=== PATIENT | male | born 1980 | race Caucasian/White ===

== ENCOUNTER 2017-02-08 21:41 | Inpatient (IN) | payer OTHER ==
[2017-02-08 21:52] VITALS: BMI 24.5
--- NOTE | 2017-02-08 22:07 | HP ---
COWS - Scale Resting Pulse: 1= SC 81-100 Sweatin= Chills/Flushing Restless Observation: 3= Extraneous Movement Pupil Size: 1= Pupils >than Normal Bone or Joint Aches: 1= Mild Discomfort Runny Nose/ Eye Tearin= Nasal Congestion GI Upset > 30mins: 1= Stomach Cramp Tremor Observation: 2= Slight Tremor Visible Yawning Observation: 0= None Anxiety or Irritability: 2=Irritable/Anxious Goose Flesh Skin: 3=Piloerection COWS Score: 16 CIWA Score - CIWA Score Nausea/Vomitin-Mild Nausea/No Vomiting Muscle Tremors: 4-Moderate,w/Arms Extend Anxiety: 4-Mod. Anxious/Guarded Agitation: 4-Moderately Restless Paroxysmal Sweats: 1-Minimal Palms Moist Orientation: 0-Oriented Tacttile Disturbances: 0-None Auditory Disturbances: 0-None Visual Disturbances: 0-None Headache: 3-Moderate CIWA-Ar Total Score: 17 Admission ROS BHS - HPI Chief Complaint: withdrawal sx Allergies/Adverse Reactions: Allergies Allergy/AdvReac Type Severity Reaction Status Date / Time fish derived AdvReac Verified 02/08/17 22:07 History of Present Illness: 36 years old male with long history of klonopin and opiate and nicotine dependence, borderline diabetes, depression is admitted to detox Exam Limitations: No Limitations - Ebola screening Have you traveled outside of the country in the last 21 days: No Have you had contact with anyone from an Ebola affected area: No Have you been sick,other than usual withdrawal symptoms: No Do you have a fever: No - Review of Systems Constitutional: Chills, Loss of Appetite, Changes in sleep, Unexplained wgt Loss EENT: reports: No Symptoms Reported Respiratory: reports: No Symptoms reported Cardiac: reports: No Symptoms Reported GI: reports: Nausea, Poor Appetite, Poor Fluid Intake, Abdominal cramping : reports: No Symptoms Reported Musculoskeletal: reports: No Symptoms Reported Integumentary: reports: No Symptoms Reported Neuro: reports: Tremors Endocrine: reports: No Symptoms Reported Hematology: reports: No Symptoms Reported Psychiatric: reports: Judgement Intact, Depressed Other Systems: Reviewed and Negative Patient History - Patient Medical History Hx Anemia: No Hx Asthma: No Hx Chronic Obstructive Pulmonary Disease (COPD): No Hx Cancer: No Hx Cardiac Disorders: No Hx Congestive Heart Failure: No Hx Hypertension: No Hx Hypercholesterolemia: No Hx Pacemaker: No HX Cerebrovascular Accident: No Hx Seizures: No Hx Dementia: No Hx Diabetes: No Hx Gastrointestinal Disorders: No Hx Liver Disease: No Hx Genitourinary Disorders: No Hx Sexually Transmitted Disorders: No Hx Renal Disease (ESRD): No Hx Thyroid Disease: No Hx Human Immunodeficiency Virus (HIV): No Hx Hepatitis C: No Hx Depression: Yes Hx Suicide Attempt: No Hx Bipolar Disorder: No Hx Schizophrenia: No - Patient Surgical History Past Surgical History: Yes Hx Neurologic Surgery: No Hx Cataract Extraction: No Hx Cardiac Surgery: No Hx Lung Surgery: No Hx Breast Surgery: No Hx Breast Biopsy: No Hx Abdominal Surgery: No Hx Appendectomy: No Hx Cholecystectomy: No Hx Genitourinary Surgery: Yes (2014) Hx Orthopedic Surgery: Yes (fx right arm 2012) Anesthesia Reaction: No - PPD History Previous Implant?: Yes Documented Results: Negative w/o proof Implanted On Prior [facility] Admission?: No PPD to be Administered?: Yes - Smoking Cessation Smoking history: Current every day smoker Have you smoked in the past 12 months: Yes Aproximately how many cigarettes per day: 10 Cigars Per Day: 0 Hx Chewing Tobacco Use: No Initiated information on smoking cessation: Yes 'Breaking Loose' booklet given: 02/08/17 - Substance & Tx. History Hx Alcohol Use: No Hx Substance Use: Yes Substance Use Type: Marijuana, Opiates, Tranquilizers Hx Substance Use Treatment: Yes - Substances Abused Benzodiazepine (Klonopin) Route: Oral Frequency: Daily (1) Amount used: 2 mg Age of first use: 23 Date of Last Use: 02/08/17 Oxycontin Route: Oral Frequency: Daily Amount used: 60 mg Age of first use: 16 Date of Last Use: 02/08/17 Family Disease History - Family Disease History Family Disease History: Diabetes: Father, Sister, [place]: Father, Other: Mother, Brother, Sister Admission Physical Exam BHS - Vital Signs Vital Signs: Vital Signs - 24 hr 02/08/17 21:43 Temperature 96.8 F L Pulse Rate 81 Respiratory 18 Rate Blood Pressure 158/107 - Physical General Appearance: Yes: Appropriately Dressed, Moderate Distress, Thin, Tremorous, Irritable, Sweating, Anxious HEENTM: Yes: Hearing grossly Normal, Normal ENT Inspection, Normocephalic, Normal Voice Respiratory: Yes: Chest Non-Tender, Lungs Clear, Normal Breath Sounds, No Respiratory Distress, No Accessory Muscle Use Neck: Yes: Supple, Trachea in good position Breast: Yes: Breasts Symetrical Cardiology: Yes: Regular Rhythm, Regular Rate, S1, S2, Murmur (x 2 years) Abdominal: Yes: Non Tender, Soft, Other (pain x months "pain occured when take addell") Genitourinary: Yes: Within Normal Limits Back: Yes: Normal Inspection Musculoskeletal: Yes: full range of Motion, Gait Steady Extremities: Yes: Normal Inspection, Normal Range of Motion, Non-Tender, Tremors Neurological: Yes: Alert, Motor Strength 5/5, Normal Response, Depressed Affect Integumentary: Yes: Warm Lymphatic: Yes: Within Normal Limits - Diagnostic (1) Opioid dependence with withdrawal Current Visit: Yes Status: Acute (2) Sedative, hypnotic or anxiolytic dependence with withdrawal, uncomplicated Current Visit: Yes Status: Acute (3) Nicotine dependence Current Visit: Yes Status: Acute Qualifiers: Nicotine product type: cigarettes Substance use status: in withdrawal Qualified Code(s): F17.213 - Nicotine dependence, cigarettes, with withdrawal (4) Borderline diabetes mellitus Current Visit: Yes Status: Acute Comment: dietary control (5) Cardiac murmur Current Visit: Yes Status: Chronic Comment: no treatment (6) Weight loss Current Visit: Yes Status: Acute (7) Depression (emotion) Current Visit: Yes Status: Suspected Qualifiers: Depression Type: dysthymia Qualified Code(s): F34.1 - Dysthymic disorder Cleared for Admission [facility] - Detox or Rehab [facility] Level of Care: Medically Managed Detox Regimen/Protocol: Methadone/Valium [facility] Breath Alcohol Content Breath Alcohol Content: 0 Urine Drug Screen - Results Drug Screen Negative: No Urine Drug Screen Results: THC-Marijuana, OPI-Opiates, AMP-Amphetamines, BZO- Benzodiazepines, OXY-Oxycodone
[2017-02-08] MEDS ORDERED: MAGNESIUM CITRATE 300 ML BOTTLE PO PRN (22:20)
[2017-02-08] MEDS ORDERED: NICOTINE POLACRILEX 2 MG GUM BC PRN (22:20)
[2017-02-08] MEDS ORDERED: METHADONE HCL 10 MG TABLET (FOR DETOX USE ONLY) PO ONE ×2 (22:20→23:00)
[2017-02-08] MEDS ORDERED: LOPERAMIDE HCL 2 MG CAPSULE PO PRN (22:20)
[2017-02-08] MEDS ORDERED: MAGNESIUM HYDROX 2400MG/30ML ORAL SUSPENSION 30 ML CUP PO PRN (22:20)
[2017-02-08] MEDS ORDERED: diazePAM 5 MG TABLET PO PRN (22:20)
[2017-02-08] MEDS ORDERED: P-EPHED 60MG/TRIPROLIDI 2.5MG TABLET PO PRN (22:20)
[2017-02-08] MEDS ORDERED: IBUPROFEN 400 MG TABLET (FP) PO PRN (22:20)
[2017-02-08] MEDS ORDERED: MENTHOL/PHENOL 1 EACH UD MM PRN (22:20)
[2017-02-08] MEDS ORDERED: guaiFENesin/D-METHORPHAN HB 10 ML UNIT-DOSE CUPS PO PRN (22:20)
[2017-02-08] MEDS ORDERED: MAG HYDROX/AL HYDROX/SIMETH 30 ML UNIT-DOSE CUP PO PRN (22:20)
[2017-02-08] MEDS ORDERED: diphenhydrAMINE HCL 50 MG CAPSULE PO PRN (22:20)
[2017-02-08] MEDS ORDERED: ACETAMINOPHEN 325 MG TABLET (FP) PO PRN (22:20)
[2017-02-08] MEDS ORDERED: diazePAM 5 MG TABLET PO ONE (22:20)
[2017-02-08 23:01] LABS: URINE APPEARANCE CLEAR; URINE BILIRUBIN NEGATIVE (NEGATIVE); URINE BLOOD NEGATIVE (NEGATIVE); URINE COLOR YELLOW; URINE GLUCOSE (UA) NEGATIVE (NEGATIVE); URINE KETONE TRACE (NEGATIVE); URINE NITRITE NEGATIVE (NEGATIVE); URINE PROTEIN NEGATIVE (NEGATIVE); URINE UROBILINOGEN NEGATIVE E.U./dl (0.2-1.0)
[2017-02-08 23:10] LABS: URINE LEUK ESTERASE TRACE (NEGATIVE)
[2017-02-08 23:20] LABS: URINE MUCUS RARE; URINE RBC 1 /hpf (0-3); URINE WBC 1 /hpf (3-5)
[2017-02-08] MEDS: diazePAM 5 MG TABLET PO SCH (23:46)
[2017-02-09] MEDS: diazePAM 5 MG TABLET PO SCH ×3 (05:32→22:10)
--- NOTE | 2017-02-09 09:06 | PN ---
[facility] CIWA - CIWA Score Nausea/Vomitin Muscle Tremors: 3 Anxiety: 2 Agitation: 2 Paroxysmal Sweats: 1-Minimal Palms Moist Orientation: 0-Oriented Tacttile Disturbances: 1-Very Mild Itch/Numbness Auditory Disturbances: 1-Very Mild Visual Disturbances: 1-Very Mild Sensitivity Headache: 2-Mild CIWA-Ar Total Score: 16 BHS COWS - Scale Resting Pulse: 0= RI 80 or Below Sweatin= Chills/Flushing Restless Observation: 3= Extraneous Movement Pupil Size: 1= Pupils >than Normal Bone or Joint Aches: 2= Severe Diffuse Aches Runny Nose/ Eye Tearin= Runny Nose/Eyes GI Upset > 30mins: 2= Nausea/Diarrhea Tremor Observation of Outstretched Hands: 2= Slight Tremor Visible Yawning Observation: 1= 1-2x During Session Anxiety or Irritability: 2=Irritable/Anxious Goose Flesh Skin: 0=Smooth Skin COWS Score: 16 [facility] Progress Note (SOAP) Subjective: ALERT,IRRITABLE,ANXIOUS,INTERRUPTED SLEEP,TREMOR,PAIN IN THEW BODY AND BACK Objective: 02/09/17 09:05 Vital Signs Temperature 97.7 F 02/09/17 06:00 Pulse Rate 65 02/09/17 06:00 Respiratory Rate 18 02/09/17 06:00 Blood Pressure 100/60 02/09/17 06:00 O2 Sat by Pulse Oximetry (%) EKG NSR WITH SINUS ARRHYTHMIA Laboratory Last Values Urine Color Yellow 02/08/17 22:24 Urine Appearance Clear 02/08/17 22:24 Urine pH 6.0 (5.0-8.0) 02/08/17 22:24 Ur Specific [place] 1.015 (1.001-1.035) 02/08/17 22:24 Urine Protein Negative (NEGATIVE) 02/08/17 22:24 Urine Glucose (UA) Negative (NEGATIVE) 02/08/17 22:24 Urine Ketones Trace (NEGATIVE) H 02/08/17 22:24 Urine Blood Negative (NEGATIVE) 02/08/17 22:24 Urine Nitrite Negative (NEGATIVE) 02/08/17 22:24 Urine Bilirubin Negative (NEGATIVE) 02/08/17 22:24 Urine Urobilinogen Negative E.U./dl (0.2-1.0) 02/08/17 22:24 Ur Leukocyte Esterase Trace (NEGATIVE) H 02/08/17 22:24 Urine RBC 1 /hpf (0-3) 02/08/17 22:24 Urine WBC 1 /hpf (3-5) 02/08/17 22:24 Urine Mucus Rare 02/08/17 22:24 LABS PENDING Assessment: 02/09/17 09:06 WITHDRAWAL SYMPTOM Plan: CONTINUE DETOX
[2017-02-09] MEDS ORDERED: METHADONE HCL 10 MG TABLET (FOR DETOX USE ONLY) PO SCH (10:00)
[2017-02-09] MEDS: PRENATAL VITAMINS W/ FOLIC ACID TABLET (FP) PO SCH (10:10)
[2017-02-09] MEDS: NICOTINE 14 MG/24 HOURS TOPICAL PATCH TD SCH (10:10)
[2017-02-09 10:40] LABS: ALBUMIN 4.4 g/dl (3.4-5.0); ALK PHOS 58 U/L (45-117); ANION GAP 5 (8-16); BILIRUBIN,TOTAL 0.6 mg/dL (0.2-1.0); CALCIUM 9.3 mg/dL (8.5-10.1); CO2 31 mmol/L (21-32); CREATININE 0.9 mg/dL (0.7-1.3); GLUCOSE,RANDOM 86 mg/dL (74-106); SGOT/AST 13 U/L (15-37); SGPT/ALT 19 U/L (12-78); TOT PROT 7.3 g/dl (6.4-8.2)
[2017-02-09 11:00] LABS: MCH 30.3 pg (25.7-33.7); MCHC 33.4 g/dl (32.0-35.9); MEAN CELL VOLUME 90.5 fl (80-96); MEAN PLT VOLUME 10.9 fl (7.5-11.1); RDW 13.9 % (11.9-15.9); WHITE BLOOD COUNT 7.4 K/mm3 (4.0-10.0)
[2017-02-09 11:12] LABS: HIV 1 & 2 AB NEGATIVE; HIV 1 AGp24 NEGATIVE
[2017-02-09 12:01] LABS: PLATELET COUNT 232 K/MM3 (134-434); PLATELET ESTIMATE ADEQUATE (NORMAL)
--- NOTE | 2017-02-09 16:23 | CONSULT ---
[facility] Psychiatric Consult - Data Date of interview: 02/09/17 Identifying data: First admission to [facility] for this 36 y/o male seeking detox treatment for opioid,benzodiazepines (klonopin),amphetamines and marijuana dependence.Patient is single without children,domiciled and employed. Substance Abuse History: - Smoking Cessation. Smoking history: Current every day smoker. Have you smoked in the past 12 months: Yes. Aproximately how many cigarettes per day: 10. Cigars Per Day: 0. Hx Chewing Tobacco Use: No. Initiated information on smoking cessation: Yes. 'Breaking Loose' booklet given : 02/08/17. - Substance & Tx. History. Hx Alcohol Use: No. Hx Substance Use: Yes. Substance Use Type: Marijuana, Opiates, Tranquilizers. Hx Substance Use Treatment: Yes. - Substances Abused. Benzodiazepine (Klonopin). Route: Oral. Frequency: Daily (1). Amount used: 2 mg. Age of first use: 23. Date of Last Use: 02/08/17. Oxycontin. Route: Oral. Frequency: Daily. Amount used: 60 mg. Age of first use: 16. Date of Last Use: 02/08/17. Confirmed by patient. Medical History: Patient endorses good general health. Psychiatric History: Patient denies. Physical/Sexual Abuse/Trauma History: Patient denies. Additional Comment: Urine Drug Screen Results: THC-Marijuana, OPI-Opiates, AMP- Amphetamines, BZO-Benzodiazepines, OXY-Oxycodone.Noted. Mental Status Exam - Mental Status Exam Alert and Oriented to: Time, Place, Person Cognitive Function: Good Patient Appearance: Well Groomed Mood: Hopeful, Euthymic Affect: Appropriate, Normal Range Patient Behavior: Fatigued, Appropriate, Cooperative Speech Pattern: Clear, Appropriate Voice Loudness: Normal Thought Process: Goal Oriented Thought Disorder: Not Present Hallucinations: Denies Suicidal Ideation: Denies Homicidal Ideation: Denies Insight/Judgement: Fair Sleep: Fair Appetite: Good Muscle strength/Tone: Normal Gait/Station: Normal Psychiatric Findings - Problem List ([place] 1, 2,3) (1) Opioid dependence with withdrawal Current Visit: Yes Status: Acute (2) Sedative, hypnotic or anxiolytic dependence with withdrawal, uncomplicated Current Visit: Yes Status: Acute (3) Amphetamine dependence Current Visit: Yes Status: Acute (4) Cannabis dependence Current Visit: Yes Status: Acute (5) Nicotine dependence Current Visit: Yes Status: Acute Qualifiers: Nicotine product type: cigarettes Substance use status: in withdrawal Qualified Code(s): F17.213 - Nicotine dependence, cigarettes, with withdrawal (6) Substance induced mood disorder Current Visit: Yes Status: Acute (7) Borderline diabetes mellitus Current Visit: Yes Status: Chronic Comment: dietary control - Initial Treatment Plan Initial Treatment Plan: Psychoeducation.Detoxification.Observation.Patient reports that he wants to " get rid of adderall in my body." He declines to take psychotropic medications with the exception of detox agents.
[2017-02-09] MEDS ORDERED: THIAMINE HCL 100 MG TABLET (FP) PO SCH (22:00)
[2017-02-10] MEDS ORDERED: diazePAM 5 MG TABLET PO SCH (10:00)
[2017-02-10] MEDS ORDERED: METHADONE HCL 5 MG TABLET (FOR DETOX USE ONLY) PO SCH (10:00)
--- NOTE | 2017-02-10 10:02 | PN ---
S CIWA - CIWA Score Nausea/Vomitin Muscle Tremors: 3 Anxiety: 2 Agitation: 2 Paroxysmal Sweats: 1-Minimal Palms Moist Orientation: 0-Oriented Tacttile Disturbances: 1-Very Mild Itch/Numbness Auditory Disturbances: 1-Very Mild Visual Disturbances: 1-Very Mild Sensitivity Headache: 2-Mild CIWA-Ar Total Score: 16 BHS COWS - Scale Resting Pulse: 0= [place] 80 or Below Sweatin= Chills/Flushing Restless Observation: 3= Extraneous Movement Pupil Size: 1= Pupils >than Normal Bone or Joint Aches: 2= Severe Diffuse Aches Runny Nose/ Eye Tearin= Runny Nose/Eyes GI Upset > 30mins: 3= Vomiting/Diarrhea Tremor Observation of Outstretched Hands: 2= Slight Tremor Visible Yawning Observation: 2= >3x During Session Anxiety or Irritability: 2=Irritable/Anxious Goose Flesh Skin: 0=Smooth Skin COWS Score: 18 S Progress Note (SOAP) Subjective: ALERT,IRRITABLE,ANXIOUS,INTERRUPTED SLEEP,PAIN IN THE BODY,BACK Objective: 02/10/17 10:03 Vital Signs Temperature 98.1 F 02/10/17 06:25 Pulse Rate 62 02/10/17 06:25 Respiratory Rate 16 02/10/17 06:25 Blood Pressure 105/74 02/10/17 06:25 O2 Sat by Pulse Oximetry (%) Laboratory Last Values WBC 7.4 K/mm3 (4.0-10.0) 02/09/17 07:30 RBC 4.72 M/mm3 (4.00-5.60) 02/09/17 07:30 Hgb 14.3 GM/dL (11.7-16.9) 02/09/17 07:30 Hct 42.7 % (35.4-49) 02/09/17 07:30 MCV 90.5 fl (80-96) 02/09/17 07:30 MCHC 33.4 g/dl (32.0-35.9) 02/09/17 07:30 RDW 13.9 % (11.9-15.9) 02/09/17 07:30 Plt Count 232 K/MM3 (134-434) 02/09/17 07:30 MPV 10.9 fl (7.5-11.1) 02/09/17 07:30 Platelet Estimate Adequate (NORMAL) 02/09/17 07:30 Platelet Comment No clumping noted 02/09/17 07:30 Sodium 139 mmol/L (136-145) 02/09/17 07:30 Potassium 4.1 mmol/L (3.5-5.1) 02/09/17 07:30 Chloride 103 mmol/L (98-107) 02/09/17 07:30 Carbon Dioxide 31 mmol/L (21-32) 02/09/17 07:30 Anion Gap 5 (8-16) L 02/09/17 07:30 BUN 14 mg/dL (7-18) 02/09/17 07:30 Creatinine 0.9 mg/dL (0.7-1.3) 02/09/17 07:30 Creat Clearance w eGFR > 60 (>60) 02/09/17 07:30 Random Glucose 86 mg/dL (74-106) 02/09/17 07:30 Calcium 9.3 mg/dL (8.5-10.1) 02/09/17 07:30 Total Bilirubin 0.6 mg/dL (0.2-1.0) 02/09/17 07:30 AST 13 U/L (15-37) L 02/09/17 07:30 ALT 19 U/L (12-78) 02/09/17 07:30 Alkaline Phosphatase 58 U/L (45-117) 02/09/17 07:30 Total Protein 7.3 g/dl (6.4-8.2) 02/09/17 07:30 Albumin 4.4 g/dl (3.4-5.0) 02/09/17 07:30 Urine Color Yellow 02/08/17 22:24 Urine Appearance Clear 02/08/17 22:24 Urine pH 6.0 (5.0-8.0) 02/08/17 22:24 Ur Specific [place] 1.015 (1.001-1.035) 02/08/17 22:24 Urine Protein Negative (NEGATIVE) 02/08/17 22:24 Urine Glucose (UA) Negative (NEGATIVE) 02/08/17 22:24 Urine Ketones Trace (NEGATIVE) H 02/08/17 22:24 Urine Blood Negative (NEGATIVE) 02/08/17 22:24 Urine Nitrite Negative (NEGATIVE) 02/08/17 22:24 Urine Bilirubin Negative (NEGATIVE) 02/08/17 22:24 Urine Urobilinogen Negative E.U./dl (0.2-1.0) 02/08/17 22:24 Ur Leukocyte Esterase Trace (NEGATIVE) H 02/08/17 22:24 Urine RBC 1 /hpf (0-3) 02/08/17 22:24 Urine WBC 1 /hpf (3-5) 02/08/17 22:24 Urine Mucus Rare 02/08/17 22:24 RPR Titer Nonreactive (NONREACTIVE) 02/09/17 07:30 HIV 1&2 Antibody Screen Negative 02/09/17 07:30 HIV P24 Antigen Negative 02/09/17 07:30 Assessment: 02/10/17 10:06 WITHDRAWAL SYMPTOM Plan: CONTINUE DETOX
[2017-02-10 10:31] VITALS: BP 124/68; PULSE 66; TEMP 96.9
[2017-02-10] MEDS: PRENATAL VITAMINS W/ FOLIC ACID TABLET (FP) PO SCH (10:40)
[2017-02-10] MEDS: NICOTINE 14 MG/24 HOURS TOPICAL PATCH TD SCH (10:40)
--- NOTE | 2017-02-10 15:20 | PN ---
S Progress Note Note: PATIENT DID NOT WANT TO COMPLETE TREATMENT,DUE TO EMERGENCY PERSONAL PROBLEM, SEEN BY COUNSELOR,SIGNED RELEASE AMA
--- NOTE | 2017-02-10 15:24 | DS ---
[facility] Detox Discharge Summary Admission Date: 02/08/17 Discharge Date: 02/10/17 - History Present History: Opioid Dependence, Sedative Dependence Additional Comments: PATIENT DID NOT WANT TO COMPLETE TREATMENT DUE TO EMERGENCY PERSONAL PROBLEM, SEEN BY COUNSELOR, SIGNED RELEASE AMA,TO SEE PMD FOR MEDICAL PROBLEM Pertinent Past History: DIABETES MELLITUS NICOTINE DEPENDENCE - Physical Exam Results Vital Signs: Vital Signs Temperature 96.9 F L 02/10/17 10:29 Pulse Rate 66 02/10/17 10:29 Respiratory Rate 16 02/10/17 10:29 Blood Pressure 124/68 02/10/17 10:29 O2 Sat by Pulse Oximetry (%) Pertinent Admission Physical Exam Findings: WITHDRAWAL SYMPTOM - Medication Discharge Medications: Ambulatory Orders NK [No Known Home Medication] 02/08/17 - AMA Did Patient Leave Against Medical Advice: Yes
[2017-02-12] MEDS ORDERED: METHADONE HCL 10 MG TABLET (FOR DETOX USE ONLY) PO SCH (10:00)
[2017-02-12] MEDS ORDERED: diazePAM 5 MG TABLET PO SCH (10:00)
[2017-02-13] MEDS ORDERED: METHADONE HCL 5 MG TABLET (FOR DETOX USE ONLY) PO SCH (06:00)
--- NOTE | 2017-02-13 16:59 | EKG ---
Test Reason : Blood Pressure : / mmHG Vent. Rate : 082 BPM Atrial Rate : 082 BPM P-R Int : 160 ms QRS Dur : 094 ms QT Int : 394 ms P-R-T Axes : 066 082 053 degrees QTc Int : 460 ms NORMAL SINUS RHYTHM WITH SINUS ARRHYTHMIA NORMAL ECG NO PREVIOUS ECGS AVAILABLE Confirmed by YULISSA GRAVES MD ([id number]) on 02/13/2017 4:59:09 PM Referred By: Confirmed By:YULISSA GRAVES MD
== END 2017-02-10 03:14 | disposition left against medical advice (07) | DRG 743 ==
LOC: YASAS 21:41 → Y6N 22:14
PROVIDERS: ADMIT Internal Medicine Addiction Medicine; ATTEND Internal Medicine Addiction Medicine
PROC: HZ2ZZZZ Detoxification Services for Substance Abuse Treatment (ICD-10-PCS; principal; 2017-02-10)
DX: F11.23 Opioid dependence with withdrawal (principal); F13.230 Sedative, hypnotic or anxiolytic dependence with withdrawal, uncomplicated; F15.20 Other stimulant dependence, uncomplicated; F12.20 Cannabis dependence, uncomplicated; F17.213 Nicotine dependence, cigarettes, with withdrawal; F19.24 Other psychoactive substance dependence with psychoactive substance-induced mood disorder; F34.1 Dysthymic disorder; E11.9 Type 2 diabetes mellitus without complications; R01.1 Cardiac murmur, unspecified; R63.4 Abnormal weight loss; Z68.24 Body mass index [BMI] 24.0-24.9, adult
CPT/HCPCS: 36415; 80053; 81003; 81015; 85027; 86593; 87389; 93005; 93010